=== PATIENT | female | born 1985 ===

== ENCOUNTER 2018-09-02 13:01 | Outpatient (CLI) | payer OTHER ==
[~2018-09-02] VITALS: Ht 154.9 cm; Wt 49.9 kg
== END 2018-09-02 13:15 | disposition home or self-care (01) ==
LOC: OFIC 805 13:01
DX: J03.80 Acute tonsillitis due to other specified organisms (principal); R13.19 Other dysphagia

== ENCOUNTER 2018-09-02 13:47 | Outpatient (CLI) | payer OTHER | END 2018-09-02 14:00 | disposition home or self-care (01) | LOC: LAB 13:47 | DX: J03.90 Acute tonsillitis, unspecified (principal) ==

== ENCOUNTER 2018-09-20 15:01 | Outpatient (CLI) | payer OTHER ==
[~2018-09-20] VITALS: Ht 152.4 cm; Wt 49.9 kg
== END 2018-09-20 15:20 | disposition home or self-care (01) ==
LOC: OFIC 805 15:01
DX: J03.80 Acute tonsillitis due to other specified organisms (principal); R13.19 Other dysphagia

== ENCOUNTER 2018-09-20 15:33 | Outpatient (CLI) | payer OTHER | END 2018-09-20 15:45 | disposition home or self-care (01) | LOC: LAB 15:33 | DX: J30.89 Other allergic rhinitis (principal) ==